=== PATIENT | male | born 1955 | race African-American/Black ===

== ENCOUNTER 2020-09-14 17:17 | Emergency (ER) | payer MEDICARE, OTHER ==
[~2020-09-14] VITALS: Ht 189.2 cm; Wt 97.7 kg
[2020-09-14] MEDS ORDERED: IBUPROFEN 600 MG TABLET PO ONE (18:15)
[2020-09-14 19:21] VITALS: BP 147/115
== END 2020-09-14 20:31 | disposition home or self-care (01) ==
LOC: EMS 17:17
DX: S61.305A Unspecified open wound of left ring finger with damage to nail, initial encounter (principal); W23.0XXA Caught, crushed, jammed, or pinched between moving objects, initial encounter; Y93.89 Activity, other specified; Y92.89 Other specified places as the place of occurrence of the external cause; Y99.8 Other external cause status

== ENCOUNTER 2020-11-28 09:58 | Emergency (ER) | payer MEDICARE, OTHER ==
[~2020-11-28] VITALS: Ht 185.4 cm; Wt 100.0 kg
[2020-11-28] MEDS ORDERED: ASPIRIN 81 MG CHEWABLE TABLET PO ONE (10:30)
[2020-11-28] MEDS ORDERED: CITA-144 PO (10:31)
[2020-11-28] MEDS ORDERED: ASPI-1444 PO (10:31)
[2020-11-28] MEDS ORDERED: GABA600T10 PO (10:31)
[2020-11-28] MEDS ORDERED: FERR324T4 PO (10:31)
[2020-11-28] MEDS ORDERED: SIMV-46 PO (10:31)
[2020-11-28 10:37] LABS: BASOPHILS % (AUTO) 1.2 % (0.0-2.0); EOSINOPHILS % (AUTO) 1.9 % (1.0-6.0); HEMATOCRIT 28.5 % (41-53); HEMOGLOBIN 9.3 g/dL (13.5-17.5); LYMPHOCYTES % (AUTO) 24.7 % (22.0-44.0); MEAN CORPUSCULAR HEMOGLOBIN 26.6 pg (26.0-34.0); MEAN CORPUSCULAR HGB CONC 32.6 G/dL (31.0-37.0); MEAN CORPUSCULAR VOLUME 82 fL (80-100); MONOCYTES # (AUTO) 0.7 K/uL (0.1-1.0); MONOCYTES % (AUTO) 8.9 % (2.0-9.0); NEUTROPHILS # (AUTO) 5.2 K/uL (1.8-7.7); NEUTROPHILS % (AUTO) 63.3 % (40.0-70.0); PLATELET COUNT (AUTO) 161 K/uL (150-450); RED BLOOD CELL COUNT(AUTO) 3.48 MIL/uL (4.50-5.90); RED CELL DISTRIBUTION WIDTH 20.1 % (11.5-14.5)
[2020-11-28 10:40] LABS: COVID AG,FIA SOURCE NASOPHARYNGEAL
[2020-11-28 10:49] LABS: CALCIUM, TOTAL 8.7 mg/dL (8.8-10.5); CREATININE 1.46 mg/dL (0.60-1.30); POTASSIUM 4.8 mmol/L (3.5-5.1)
[2020-11-28 10:51] LABS: INR 1.1 (0.9-1.1); PROTHROMBIN TIME 11.5 SEC (9.4-11.6)
[2020-11-28] MEDS ORDERED: NITROGLYCERIN 0.4 MG SUBLINGUAL TABLET #25 SL ONE (11:00)
[2020-11-28 11:18] LABS: ALBUMIN 3.3 g/dL (3.4-5.0); BILIRUBIN,TOTAL 0.4 mg/dL (0.1-1.0); TOTAL PROTEIN, SERUM 8.4 g/dL (6.4-8.2)
[2020-11-28] MEDS ORDERED: ONDANSETRON HCL 4 MG/2 ML VIAL IVP ONE (12:15)
[2020-11-28] MEDS ORDERED: MORPHINE SULFATE 4 MG/ML SYRINGE IVP ONE (12:15)
[2020-11-28 12:20] LABS: APPEARANCE,URINE CLEAR (CLEAR); GLUCOSE, URINE (UA) NEGATIVE (NEGATIVE); KETONES,URINE TRACE mg/dL (NEGATIVE); LEUKOCYTE ESTERASE ,URINE NEGATIVE (NEGATIVE); NITRATE,URINE NEGATIVE (NEGATIVE); OCCULT BLOOD,URINE NEGATIVE (NEGATIVE); PH,URINE 6.5 (5.0-8.0); PROTEIN,URINE NEGATIVE (NEGATIVE)
[2020-11-28 12:26] LABS: AMPHET/METH SCREEN,URINE POSITIVE (NEGATIVE); BARBITURATE SCREEN, URINE NEGATIVE (NEGATIVE); BENZODIAZEPINES SCREEN,URINE NEGATIVE (NEGATIVE); CANNABINOID SCREEN,URINE POSITIVE (NEGATIVE); COCAINE SCREEN,URINE POSITIVE (NEGATIVE); METHADONE SCREEN, URINE POSITIVE (NEGATIVE); OPIATE SCREEN,URINE NEGATIVE (NEGATIVE)
[2020-11-28 12:30] LABS: BILIRUBIN,URINE PRELIM. POSITIVE (NEGATIVE)
[2020-11-28 12:32] LABS: BACTERIA,URINE None Seen /HPF (None Seen); RBC,URINE None Seen /HPF (0-2); WBC,URINE None Seen /HPF (0-5)
[2020-11-28 12:34] LABS: PHENCYCLIDINE SCREEN,URINE NEGATIVE (NEGATIVE)
[2020-11-28 17:00] VITALS: BP 120/62
== END 2020-11-28 17:10 | disposition short-term general hospital (02) ==
LOC: EMS 10:07
DX: R07.9 Chest pain, unspecified (principal); Z20.822 Contact with and (suspected) exposure to COVID-19; I10 Essential (primary) hypertension; F32.9 Major depressive disorder, single episode, unspecified
CPT/HCPCS: 36415; 71045; 80053; 80307; 81001; 82550; 82962; 83880; 84484; 85025; 85610; 85730; 87426; 93005; 96374; 96375; 99285; J2270; J2405; U0003

== ENCOUNTER 2021-03-05 19:51 | Emergency (ER) | payer MEDICARE, OTHER ==
[~2021-03-05] VITALS: Ht 188 cm; Wt 101.8 kg
[~2021-03-05 19:51] MED LIST: ASPI-1444 PO; CITA-144 PO; FERR324T4 PO; GABA600T10 PO; SIMV-46 PO
[2021-03-05] MEDS ORDERED: METHOCARBAMOL 500 MG TABLET PO ONE (22:30)
[2021-03-05] MEDS ORDERED: IBUPROFEN 800 MG TABLET PO ONE (22:30)
[2021-03-06 00:37] VITALS: BP 140/71
== END 2021-03-06 01:00 | disposition home or self-care (01) ==
LOC: EMS 19:51
DX: B35.1 Tinea unguium (principal); E11.65 Type 2 diabetes mellitus with hyperglycemia; F17.210 Nicotine dependence, cigarettes, uncomplicated; F12.90 Cannabis use, unspecified, uncomplicated; F11.90 Opioid use, unspecified, uncomplicated; F15.90 Other stimulant use, unspecified, uncomplicated; F32.9 Major depressive disorder, single episode, unspecified; I10 Essential (primary) hypertension; Z79.899 Other long term (current) drug therapy
CPT/HCPCS: 82962; 99283

== ENCOUNTER 2022-08-31 10:58 | Emergency (ER) | payer MEDICARE, MEDICAID ==
[~2022-08-31] VITALS: Ht 185.4 cm; Wt 84.1 kg
[2022-08-31] MEDS ORDERED: GABA-1181 PO (11:57)
[2022-08-31] MEDS ORDERED: ALBU8HFA PO (11:57)
[2022-08-31] MEDS ORDERED: ALBUTEROL SULFATE 5 MG/ML 20 ML NEB SOLN [BULK] NEB ONE (12:00)
[2022-08-31] MEDS ORDERED: IPRATROPIUM BROMIDE 0.5 MG/2.5 ML NEB SOLUTION NEB ONE (12:00)
[2022-08-31] MEDS ORDERED: ALBUTEROL SULFATE 2.5 MG/0.5 ML NEB SOLUTION NEB ONE ×3 (12:15→13:15)
[2022-08-31 12:32] LABS: COVID AG,FIA SOURCE NASAL SWAB
[2022-08-31 12:37] LABS: BASOPHILS % (AUTO) 0.5 % (0.0-2.0); EOSINOPHILS % (AUTO) 0.5 % (1.0-6.0); HEMATOCRIT 24.2 % (41-53); HEMOGLOBIN 7.2 g/dL (13.5-17.5); LYMPHOCYTES # (AUTO) 1.7 K/uL (1.0-4.8); LYMPHOCYTES % (AUTO) 17.1 % (22.0-44.0); MEAN CORPUSCULAR HEMOGLOBIN 21.4 pg (26.0-34.0); MEAN CORPUSCULAR HGB CONC 29.8 G/dL (31.0-37.0); MEAN CORPUSCULAR VOLUME 72 fL (80-100); MONOCYTES # (AUTO) 1.1 K/uL (0.1-1.0); MONOCYTES % (AUTO) 10.7 % (2.0-9.0); NEUTROPHILS # (AUTO) 7.2 K/uL (1.8-7.7); NEUTROPHILS % (AUTO) 71.2 % (40.0-70.0); PLATELET COUNT (AUTO) 265 K/uL (150-450); RED BLOOD CELL COUNT(AUTO) 3.37 MIL/uL (4.50-5.90); RED CELL DISTRIBUTION WIDTH 21.3 % (11.5-14.5)
[2022-08-31 12:49] LABS: ANION GAP 4 mmol/L (8-16); CALCIUM, TOTAL 8.3 mg/dL (8.8-10.5); CARBON DIOXIDE 30 mmol/L (22-29); CHLORIDE 98 mmol/L (98-107); GLOMERULAR FILTR. RATE CALC > 60 mL/min (>60); GLUCOSE,RANDOM 106 mg/dL (70-110); POTASSIUM 4.4 mmol/L (3.5-5.1); SODIUM SERUM 132 mmol/L (136-145); UREA NITROGEN, BLOOD 13 mg/dL (7-18)
[2022-08-31 12:50] LABS: D-DIMER 0.88 mg/L FEU (0.00-0.50)
[2022-08-31 12:53] LABS: ALANINE AMINOTRANSFERASE 31 U/L (12-78); ALBUMIN 2.5 g/dL (3.4-5.0); ALKALINE PHOSPHATASE 67 U/L (46-116); ASPARTATE AMINOTRANSFERASE 49 U/L (15-37); BILIRUBIN,TOTAL 0.3 mg/dL (0.1-1.0); TOTAL PROTEIN, SERUM 9.8 g/dL (6.4-8.2)
[2022-08-31 13:06] LABS: B-TYPE NATRIURETIC PEPTIDE 251 pg/mL (0-100)
[2022-08-31 13:19] LABS: INFLUENZA TYPE A NEGATIVE FOR TYPE A (NEGATIVE); INFLUENZA TYPE B NEGATIVE FOR TYPE B (NEGATIVE)
[2022-08-31] MEDS ORDERED: AZITHROMYCIN 500 MG/NS 250 ML IV ONE (13:30)
[2022-08-31] MEDS ORDERED: CefTRIAXone 1 GM/DEXTROSE 50 ML IV ONE (13:30)
[2022-08-31 14:02] VITALS: BP 147/67
[2022-08-31] MEDS ORDERED: 0.9% SODIUM CHLORIDE 10 ML SYRINGE IVP PRN ×2 (15:00→15:15)
[2022-08-31] MEDS ORDERED: IPRATROPIUM BROMIDE 0.5 MG/2.5 ML NEB SOLUTION NEB PRN ×2 (15:00→15:15)
[2022-08-31] MEDS ORDERED: BISACODYL 10 MG RECTAL RECTAL SUPPOSITORY PR PRN ×2 (15:00→15:15)
[2022-08-31] MEDS ORDERED: ALBUTEROL SULFATE 2.5 MG/0.5 ML NEB SOLUTION NEB PRN ×2 (15:00→15:15)
[2022-08-31] MEDS ORDERED: ACETAMINOPHEN 325 MG TABLET PO PRN ×2 (15:00→15:15)
[2022-08-31] MEDS ORDERED: ONDANSETRON HCL 4 MG/2 ML VIAL IVP PRN ×2 (15:00→15:15)
[2022-08-31 15:22] LABS: % IRON SATURATION 3.2 % (30-44); IRON, SERUM 11 mcg/dL (50-175); TOTAL IRON BINDING CAPACITY 341 mcg/dL (250-450)
[2022-08-31 15:23] LABS: INR 1.3 (0.9-1.1); PROTHROMBIN TIME 13.3 SEC (9.4-11.6)
[2022-08-31] MEDS ORDERED: AZIT250T9 PO (15:26)
[2022-08-31] MEDS ORDERED: INSULIN LISPRO 100 UNITS/ML SQ PRN (15:30)
[2022-08-31] MEDS ORDERED: DEXTROSE 50%-WATER 25 GM/50 ML SYRINGE IVP PRN (15:30)
[2022-08-31] MEDS ORDERED: IPRATROPIUM BROMIDE 0.5 MG/2.5 ML NEB SOLUTION NEB SCH ×2 (16:00)
[2022-08-31] MEDS ORDERED: ALBUTEROL SULFATE 2.5 MG/0.5 ML NEB SOLUTION NEB SCH ×2 (16:00)
[2022-08-31] MEDS ORDERED: GABAPENTIN 300 MG CAPSULE PO SCH (16:00)
[2022-08-31 16:03] LABS: FERRITIN 31 ng/mL (26-388)
[2022-08-31] MEDS ORDERED: FERROUS SULFATE 325 MG EC TABLET PO SCH (17:30)
[2022-08-31] MEDS ORDERED: DOCUSATE SODIUM 100 MG CAPSULE PO SCH ×2 (21:00)
[2022-08-31] MEDS ORDERED: SIMVASTATIN 40 MG TABLET PO SCH (21:00)
[2022-08-31] MEDS ORDERED: DOXYCYCLINE HYCLATE 100 MG in DEXTROSE 5%-WATER 100 ML IV SCH (22:00)
[2022-09-01] MEDS ORDERED: CITALOPRAM HYDROBROMIDE 20 MG TABLET PO SCH (09:00)
[2022-09-01] MEDS ORDERED: PANTOPRAZOLE SODIUM 40 MG DR TABLET PO SCH ×2 (09:00)
[2022-09-01] MEDS ORDERED: CefTRIAXone 1 GM/DEXTROSE 50 ML IV SCH (14:00)
[2022-09-02 17:06] LABS: S PNEUMO SOURCE Urine; STREP PNEUMONIAE AG URINE Negative (Negative)
[2022-09-02 18:06] LABS: LEGIONELLA PNEUMO AG URINE Negative (Negative)
== END 2022-08-31 16:09 | disposition left against medical advice (07) ==
LOC: EMS 11:12
DX: J18.9 Pneumonia, unspecified organism (principal); R09.02 Hypoxemia; F32.A Depression, unspecified; E11.9 Type 2 diabetes mellitus without complications; I10 Essential (primary) hypertension; F17.210 Nicotine dependence, cigarettes, uncomplicated; F12.90 Cannabis use, unspecified, uncomplicated; F15.90 Other stimulant use, unspecified, uncomplicated; F11.90 Opioid use, unspecified, uncomplicated; Z98.890 Other specified postprocedural states; Z20.822 Contact with and (suspected) exposure to COVID-19
CPT/HCPCS: 99285; 96365; 71045; 96367; 87426; 80053; 82728; 83036; 83540; 83550; 83880; 84484; 85025; 85379; 85610; 85730; 87040; 87804; 87449; 87899; 94644; 93005; 86738 ×2; 84145; 36415; J0456; J0696; J7613

== ENCOUNTER 2023-08-31 13:01 | Emergency (ER) | payer MEDICARE, OTHER ==
[~2023-08-31] VITALS: Ht 185.4 cm; Wt 90.9 kg
[~2023-08-31 13:01] MED LIST changes: +ALBU18HF12 PO; +AMOX1TAB16 PO; +GABA-1181 PO; -GABA600T10 PO
[2023-08-31] MEDS ORDERED: TraMADol HCL 50 MG TABLET PO ONE (16:15)
[2023-08-31 18:15] VITALS: TEMP 98.5
[2023-08-31 18:36] VITALS: BP 138/69; PULSE 57; RESP 18
== END 2023-08-31 18:40 | disposition home or self-care (01) ==
LOC: EMS 13:04
DX: S09.90XA Unspecified injury of head, initial encounter (principal); S10.93XA Contusion of unspecified part of neck, initial encounter; F32.A Depression, unspecified; E11.9 Type 2 diabetes mellitus without complications; I10 Essential (primary) hypertension; F17.210 Nicotine dependence, cigarettes, uncomplicated; F12.90 Cannabis use, unspecified, uncomplicated; F15.90 Other stimulant use, unspecified, uncomplicated; Z98.890 Other specified postprocedural states; W19.XXXA Unspecified fall, initial encounter; Y93.89 Activity, other specified; Y92.89 Other specified places as the place of occurrence of the external cause; Y99.8 Other external cause status
CPT/HCPCS: 70450; 72125; 99284

== ENCOUNTER 2025-04-22 11:25 | Emergency (ER) | payer MEDICARE, MEDICAID ==
[~2025-04-22] VITALS: Ht 185.4 cm; Wt 87.0 kg
[~2025-04-22 11:25] MED LIST changes: -AMOX1TAB16 PO
[2025-04-22 11:38] VITALS: BP 125/61; PULSE 63; RESP 16; TEMP 97.9; O2SAT 99
[2025-04-22] MEDS: ACETAMINOPHEN 500 MG TABLET PO ONE (13:44)
== END 2025-04-22 14:45 | disposition home or self-care (01) ==
LOC: EMS 11:25
DX: S60.211A Contusion of right wrist, initial encounter (principal); I10 Essential (primary) hypertension; E11.9 Type 2 diabetes mellitus without complications; F12.90 Cannabis use, unspecified, uncomplicated; F32.A Depression, unspecified; F15.90 Other stimulant use, unspecified, uncomplicated; F17.210 Nicotine dependence, cigarettes, uncomplicated; Z79.82 Long term (current) use of aspirin; Z79.899 Other long term (current) drug therapy; V89.2XXA Person injured in unspecified motor-vehicle accident, traffic, initial encounter; Y93.89 Activity, other specified; Y92.410 Unspecified street and highway as the place of occurrence of the external cause; Y99.8 Other external cause status
CPT/HCPCS: 99284; 73110-TC; 73130-TC; Z7502; Z7610

== ENCOUNTER 2025-07-18 22:55 | Inpatient (IN) | payer MEDICARE, MEDICAID ==
[~2025-07-18] VITALS: Ht 188 cm; Wt 81.8 kg
[2025-07-19 00:19] LABS: COVID AG,FIA SOURCE NASAL SWAB
[2025-07-19 00:33] LABS: INFLUENZA TYPE A NEGATIVE FOR TYPE A (NEGATIVE); INFLUENZA TYPE B NEGATIVE FOR TYPE B (NEGATIVE); SARS-COV2 (COVID) ANTIGEN,FIA Negative (Negative)
[2025-07-19] MEDS: IPRATROPIUM BROMIDE 0.5 MG/2.5 ML NEB SOLUTION NEB ONE (00:37)
[2025-07-19] MEDS: ALBUTEROL SULFATE 2.5 MG/0.5 ML NEB SOLUTION NEB ONE (00:37)
[2025-07-19 00:41] LABS: PLATELET COUNT (AUTO) 223 K/uL (150-450); RED BLOOD CELL COUNT(AUTO) 3.99 MIL/uL (4.50-5.90); RED CELL DISTRIBUTION WIDTH 20.4 % (11.5-14.5); WHITE BLOOD COUNT (AUTO) 12.0 K/uL (4.5-11.0)
[2025-07-19 00:49] LABS: CALCIUM, TOTAL 8.0 mg/dL (8.8-10.5); CREATININE 1.33 mg/dL (0.60-1.30); GLOMERULAR FILTR. RATE CALC > 60 mL/min (>60); GLUCOSE,RANDOM 86 mg/dL (70-110); SODIUM SERUM 136 mmol/L (136-145); UREA NITROGEN, BLOOD 9 mg/dL (7-18)
[2025-07-19 00:50] VITALS: PULSE 65; RESP 20; O2SAT 96
[2025-07-19 00:59] LABS: TROPONIN I-HIGH SENSITIVITY 15 ng/L (<76)
[2025-07-19 01:05] VITALS: PULSE 70; RESP 20; O2SAT 98
[2025-07-19] MEDS: AZITHROMYCIN 500 MG TABLET PO ONE (02:11)
[2025-07-19 09:15] VITALS: BP 148/89; PULSE 62; RESP 22; TEMP 98.4; O2SAT 98
[2025-07-19] MEDS ORDERED: ALBUTEROL SULFATE 2.5 MG/0.5 ML NEB SOLUTION NEB PRN (10:00)
[2025-07-19] MEDS ORDERED: IPRATROPIUM BROMIDE 0.5 MG/2.5 ML NEB SOLUTION NEB PRN (10:00)
[2025-07-19] MEDS ORDERED: AZITHROMYCIN 500 MG/NS 250 ML IV SCH ×2 (10:00→22:00)
[2025-07-19] MEDS ORDERED: SODIUM CHLORIDE 0.9% 500 ML IV ONE (12:32)
[2025-07-19] MEDS: CefTRIAXone 1 GM/DEXTROSE 50 ML IV SCH (12:36)
[2025-07-19] MEDS ORDERED: IPRATROPIUM BROMIDE 0.5 MG/2.5 ML NEB SOLUTION NEB SCH (14:00)
[2025-07-19] MEDS ORDERED: ALBUTEROL SULFATE 2.5 MG/0.5 ML NEB SOLUTION NEB SCH (14:00)
[2025-07-19] MEDS ORDERED: METHADONE HCL 10 MG TABLET PO ONE (15:45)
[2025-07-19 15:54] VITALS: BP 149/61; PULSE 59; RESP 19; TEMP 98; O2SAT 95
[2025-07-19] MEDS ORDERED: BENZONATATE 100 MG CAPSULE PO SCH (16:00)
[2025-07-19] MEDS ORDERED: GABAPENTIN 300 MG CAPSULE PO SCH (16:00)
[2025-07-19] MEDS ORDERED: SIMVASTATIN 40 MG TABLET PO SCH (21:00)
[2025-07-19] MEDS ORDERED: GuaiFENesin SR 600 MG ER TABLET PO SCH (21:00)
[2025-07-20] MEDS ORDERED: CITALOPRAM HYDROBROMIDE 20 MG TABLET PO SCH (09:00)
[2025-07-20] MEDS ORDERED: ASPIRIN 81 MG DR TABLET PO SCH (09:00)
== END 2025-07-19 16:36 | disposition left against medical advice (07) | DRG 189 ==
LOC: EMS 23:56 → EDH 07-19 06:38 → 6N 07-19 09:06
PROVIDERS: ADMIT Internal Medicine; ATTEND Internal Medicine
DX: J96.01 Acute respiratory failure with hypoxia (principal); J44.1 Chronic obstructive pulmonary disease with (acute) exacerbation; F11.20 Opioid dependence, uncomplicated; E11.9 Type 2 diabetes mellitus without complications; I10 Essential (primary) hypertension; F32.A Depression, unspecified; D64.9 Anemia, unspecified; Z20.822 Contact with and (suspected) exposure to COVID-19; E78.5 Hyperlipidemia, unspecified; F15.90 Other stimulant use, unspecified, uncomplicated; J98.4 Other disorders of lung; Z87.01 Personal history of pneumonia (recurrent); Z87.891 Personal history of nicotine dependence; Z53.29 Procedure and treatment not carried out because of patient's decision for other reasons
CPT/HCPCS: 71045; 80048; 83735; 83880; 84484; 85025; 87804; 93005; 94640; 99285; J0456; J0696; J2919; J7040; 36415-L1; 36415-TC; J7613